=== PATIENT | male | born 1985 | race Caucasian/White ===

== ENCOUNTER 2019-11-14 09:26 | Outpatient (CLI) | payer BC, OTHER ==
--- NOTE | 2019-11-14 10:00 | RAD ---
. XR Sinuses [facility] View Only HISTORY: MRI clearance for metal in eyes COMPARISON: None. FINDINGS: No radiopaque foreign body is seen.
--- NOTE | 2019-11-14 10:45 | MRI ---
MRI cervical spine noncontrast: 11/14/2019 HISTORY: 34-year-old male with cervical radiculopathy and cervicalgia COMPARISON: None FINDINGS: There is reversal of curvature, kyphosis. No high-grade disc space narrowing at any level. 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 This is exacerbated by multilevel disc herniations at C3-4, C4-5, and C5-6. Vertebral body heights are maintained. No major bone marrow signal abnormality. Moderate bilateral facet DJD at C7-T1. No high-grade facet DJD at any other level. Cervical spinal cord is normal in size and sign al. C1-2: Normal C2-3: No significant central or neural foraminal stenosis. C3-4: Broad-based disc protrusion with prominent small focal central component, abuts and mildly inde nts, and slightly posteriorly displaces, the spinal cord. Moderate narrowing of the spinal canal AP diameter. Transverse diameter generous. No right neural foraminal stenosis. Mild left neural foramina l stenosis. C4-5: Broad-based disc protrusion or disc-osteophyte complex. Superimposed moderately large right-paz tral disc extrusion with lateral and central components, deeply indents and flattens the spinal cord, causing severe narrowing of the AP dimension of the spinal canal, and posteriorly displacing th e spinal cord against the posterior wall of the spinal canal. Small bilateral uncinate process osteophytes. No high-grade neural foraminal stenosis. The disc extrusion does impinge on the right C5 nerve root. C5-6: Superimposed on broad-based disc protrusion or disc-osteophyte complex, there is a moderately l arge disc herniation centered in the left-paracentral region, but components extending to the contralateral right-central and left lateral regions. This deeply indents and flattens the spinal cor d, posteriorly displacing it against the posterior wall of the spinal canal causing severe narrowing of the AP dimension of the spinal canal. Small bilateral uncinate process osteophytes. Mild to moderate right neural foraminal stenosis. Moderate to severe left neural foraminal stenosis. C6-7: Small central disc protrusion indents the ventral surface of the spinal cord. High-grade narrow ing of AP dimension of spinal canal. No high-grade neural foraminal stenosis. C7-T1: No central or neural foraminal stenosis. IMPRESSION: 1.) Prominent disc herniations at C4-5 and C5-6 compressing the spinal cord. 2) mild indentations of the spinal cord by small disc herniations at C3-4 and C6-7. 3) developmentally small caliber spinal canal exacerbated by the disc herniations and disc protrusion s.
== END 2019-11-14 09:27 | disposition home or self-care (01) ==
LOC: BICMRI 09:26
PROVIDERS: ATTEND Family Medicine
DX: M50.11 Cervical disc disorder with radiculopathy, high cervical region (principal)
CPT/HCPCS: 70210; 72141